=== PATIENT | female | born 2000 | race Caucasian/White ===

== ENCOUNTER → 2019-11-13 15:46 | Outpatient (BNVA) | payer OTHER, MEDICAID, SELFPAY | PROVIDERS: Visit Provider Emergency Medicine | DX: M79.606 Pain in leg, unspecified (principal); M25.571 Pain in right ankle and joints of right foot | CPT/HCPCS: 73590; 73610 ==

== ENCOUNTER 2020-07-31 06:00 | Outpatient (CLI) | payer OTHER, MEDICAID, SELFPAY | END 2020-07-31 06:01 | disposition home or self-care (01) | LOC: RADSHAW 03-04 13:39 | PROVIDERS: PCP Emergency Medicine; Visit Provider Emergency Medicine | DX: R51.9 Headache, unspecified (principal) | CPT/HCPCS: 80053; 85025 ==

== ENCOUNTER 2020-08-18 10:59 | Outpatient (CLI) | payer OTHER, MEDICAID, SELFPAY ==
--- NOTE | 2020-08-18 11:00 | MR_ITS ---
WS: [id number] MRI BRAIN WITHOUT CONTRAST HISTORY: R51.9 - Headache, unspecified COMPARISON: None available. TECHNIQUE: Diffusion imaging, multiplanar T1, T2 and FLAIR imaging obtained. No evidence for acute infarct or hemorrhage. Andrews-white matter differentiation is normal. No remote or acute infarcts are volume loss. Ventricles and extra-axial spaces are normal. No inferior displacement of cerebellar tonsils. The sella turcica and pituitary gland are unremarkabl e. Retrocerebellar arachnoid cyst measures 2.4 x 2.1 cm. Mild ectopia of the cerebellar tonsils. Tonsils extend just greater than 4 mm distal to the foramen magnum. Dural venous sinuses and [place] of [place] demonstrate no abnormality on this unenhanced studies. Paranasal sinuses: Small amount mucoperiosteal thickening in the floor of the RIGHT maxillary sinus. Mastoid air cells: Normal. Calvarium and scalp: Intact. MR/MR head wo con* [id number] IMPRESSION: 1. No acute infarct or mass or signal abnormality. 2. Retrocerebellar arachnoid cyst. 3. Mild ectopia of the cerebellar tonsils.
== END 2020-08-18 11:00 | disposition home or self-care (01) ==
LOC: RADSHAW 11:01
PROVIDERS: PCP Emergency Medicine; Visit Provider Emergency Medicine
DX: R51.9 Headache, unspecified (principal); G93.0 Cerebral cysts
CPT/HCPCS: 70551

== ENCOUNTER → 2020-09-30 14:21 | Outpatient (BNVA) | payer OTHER, MEDICAID, SELFPAY | PROVIDERS: PCP Emergency Medicine; Visit Provider Specialist | DX: G43.711 Chronic migraine without aura, intractable, with status migrainosus (principal); G93.0 Cerebral cysts | CPT/HCPCS: 99204 ==

== ENCOUNTER → 2021-08-25 12:00 | Outpatient (BNVA) | payer OTHER, MEDICAID, SELFPAY | PROVIDERS: PCP Emergency Medicine; Visit Provider Nurse Practitioner Family | DX: R53.83 Other fatigue (principal); R63.4 Abnormal weight loss; R53.82 Chronic fatigue, unspecified; R10.12 Left upper quadrant pain | CPT/HCPCS: 80053; 84443; 85025; 85651 ==